=== PATIENT | female | born 1945 | race Caucasian/White ===

== ENCOUNTER 2018-05-02 00:13 | Emergency (ER) | payer MEDICARE, OTHER ==
[~2018-05-02] VITALS: Ht 142.2 cm; Wt 56.7 kg
[~2018-05-02 00:13] MED LIST: AMARYL; CLIN300 PO; CODACE30 PO; COREG; DIOVAN; GLUCOPHAGE; HYDACE5 PO; HYDRALAZINE; PENVK500 PO; PROBENECID; Percocet 5-3251 EACH PO; THYROXINE
[2018-05-02] MEDS ORDERED: Metformin HCl500 MG PO (00:33)
[2018-05-02] MEDS ORDERED: GLIP5ER PO (00:33)
[2018-05-02] MEDS ORDERED: LEVSOD137 PO (00:33)
[2018-05-02] MEDS ORDERED: AMLO5 PO (00:34)
== END 2018-05-02 03:15 | disposition left against medical advice (07) ==
LOC: ER 00:13
DX: Z53.21 Procedure and treatment not carried out due to patient leaving prior to being seen by health care provider (principal)

== ENCOUNTER → 2020-03-26 | Outpatient (CLI) | payer MEDICARE, OTHER ==
[~2020-03-26] MED LIST changes: +AMLO5 PO; +GLIP5ER PO; +LEVSOD137 PO; +Metformin HCl500 MG PO
[2020-03-26 14:23] LABS: Source, Urine Voided
[2020-03-26 14:36] LABS: BASOPHILS ABSOLUTE AUTO 0.04 K/mm3 (0.00-0.23); BASOPHILS PERCENT AUTO 1 % (0-2); EOSINOPHILS ABSOLUTE AUTO 0.11 K/mm3 (0.00-0.68); EOSINOPHILS PERCENT AUTO 2 % (0-6); Hemoglobin 11.6 g/dL (11.5-16.0); IMMATURE GRAN ABSOLUTE AUTO 0.01 K/mm3 (0.00-0.10); IMMATURE GRAN PERCENT AUTO 0 % (0-1); LYMPHOCYTES ABSOLUTE AUTO 2.29 K/mm3 (0.84-5.20); LYMPHOCYTES PERCENT AUTO 33 % (21-46); MONOCYTES ABSOLUTE AUTO 0.69 K/mm3 (0.16-1.47); MONOCYTES PERCENT AUTO 10 % (4-13); Mean Corpuscular HGB 29.1 pg (26.0-34.0); Mean Corpuscular HGB Conc 33.1 g/dL (31.5-36.5); Mean Corpuscular Volume 88 fL (80-100); Mean Platelet Volume 9.7 fL (9.1-12.4); NEUTROPHILS PERCENT AUTO 55 % (41-73); Platelet Count 222 K/mm3 (150-400); RDW Coefficient Variation 12.7 % (11.7-14.2); RDW Standard Deviation 40.7 fL (35.1-46.3); Red Blood Cell Count 3.99 M/mm3 (3.80-5.20); White Blood Cell Count 6.94 K/mm3 (4.00-11.30)
[2020-03-26 14:49] LABS: Albumin, Blood 3.9 g/dL (3.4-5.0); Anion Gap 13 mmol/L (6-16); Blood Urea Nitrogen 34 mg/dL (8-24); CO2, Blood 25 mmol/L (21-32); Calcium, Blood 9.1 mg/dL (8.5-10.1); Chloride, Blood 108 mmol/L (98-108); Creatinine, Blood 1.36 mg/dL (0.40-1.00); Glomerular Filtration Rate 38 (60-); Glucose, Blood 112 mg/dL (70-99); Phosphorus, Blood 4.8 mg/dL (2.5-4.9); Potassium, Blood 4.5 mmol/L (3.5-5.5); Sodium, Blood 146 mmol/L (136-145)
[2020-03-26 14:53] LABS: Appearance, Urine Cloudy (Clear); Bilirubin, Urine Neg (Neg); Blood, Urine Neg (Neg); Color, Urine Yellow (P-Yellow); Glucose Qualitative, Urine Neg (Normal); Ketones, Urine Neg (Neg); Leukocyte Esterase, Urine 2+ (Neg); Nitrite, Urine Pos (Neg); Protein, Urine 2+ (Neg); Specific Gravity, Urine 1.015 (1.003-1.022); Urobilinogen, Urine NORM (Normal)
[2020-03-26 14:54] LABS: Bacteria Many /hpf; Red Blood Cells, Urine 0-2 /hpf (0-2); Squamous Epithelial Cells Few /hpf (Few); Transitional Epithelial Cells Few /hpf (0-Rare)
[2020-03-26 17:10] LABS: Creatinine, Urine Random 71.6 mg/dL (27.00-270.00); Protein, Urine Random 147.6 mg/dL (0.0-11.9)
[2020-03-28 01:09] LABS: HBSAG SCREEN Negative (Negative); HEP B CORE AB, TOT Negative (Negative); HEP C VIRUS AB <0.1 (0.0-0.9)
== END | disposition home or self-care (01) ==
LOC: LAB EV 14:10 → LAB SHORT 14:10
PROVIDERS: Internal Medicine
DX: Z11.59 Encounter for screening for other viral diseases (principal); N18.3 Chronic kidney disease, stage 3 (moderate)
CPT/HCPCS: 36415; 80069; 81001; 82570; 84156; 85025; 86317; 86704; 86708; 86803; 87340

== ENCOUNTER → 2020-06-07 | Outpatient (CLI) | payer MEDICARE, OTHER | END | disposition home or self-care (01) | LOC: LAB SHORT 08:27 → PLD 08:27 | DX: B88.0 Other acariasis (principal) | CPT/HCPCS: 88305; 88312 ==

== ENCOUNTER 2020-07-26 20:44 | Emergency (ER) | payer MEDICARE, OTHER ==
[~2020-07-26] VITALS: Ht 142.2 cm; Wt 52.2 kg
[2020-07-26 21:40] LABS: BASOPHILS ABSOLUTE AUTO 0.05 K/mm3 (0.00-0.23); BASOPHILS PERCENT AUTO 1 % (0-2); EOSINOPHILS ABSOLUTE AUTO 0.04 K/mm3 (0.00-0.68); EOSINOPHILS PERCENT AUTO 1 % (0-6); Hematocrit 34.1 % (33.0-51.0); IMMATURE GRAN ABSOLUTE AUTO 0.02 K/mm3 (0.00-0.10); IMMATURE GRAN PERCENT AUTO 0 % (0-1); LYMPHOCYTES ABSOLUTE AUTO 0.98 K/mm3 (0.84-5.20); LYMPHOCYTES PERCENT AUTO 11 % (21-46); MONOCYTES ABSOLUTE AUTO 0.79 K/mm3 (0.16-1.47); MONOCYTES PERCENT AUTO 9 % (4-13); Mean Corpuscular HGB 29.3 pg (26.0-34.0); Mean Corpuscular HGB Conc 32.3 g/dL (31.5-36.5); Mean Corpuscular Volume 91 fL (80-100); Mean Platelet Volume 10.3 fL (9.1-12.4); NEUTROPHILS ABSOLUTE AUTO 6.73 K/mm3 (1.96-9.15); NEUTROPHILS PERCENT AUTO 78 % (41-73); Platelet Count 191 K/mm3 (150-400); RDW Coefficient Variation 12.9 % (11.7-14.2); RDW Standard Deviation 42.5 fL (35.1-46.3); Red Blood Cell Count 3.76 M/mm3 (3.80-5.20); White Blood Cell Count 8.61 K/mm3 (4.00-11.30)
[2020-07-26 22:00] LABS: Alanine Aminotransfer (ALT/SGP 19 U/L (12-78); Albumin, Blood 3.7 g/dL (3.4-5.0); Alk Phos 100 U/L (50-136); Anion Gap 6 mmol/L (6-16); Aspartate Aminotrans (AST/SGOT 20 U/L (12-37); Bilirubin, Total 0.6 mg/dL (0.1-1.0); Blood Urea Nitrogen 33 mg/dL (8-24); Bun/Creatinine Ratio 25.6 (12.0-20.0); CO2, Blood 25 mmol/L (21-32); CPK Creatine Kinase 461 U/L (26-193); Calcium, Blood 8.8 mg/dL (8.5-10.1); Chloride, Blood 110 mmol/L (98-108); Creatinine, Blood 1.29 mg/dL (0.40-1.00); Globulin, Blood 3.7 g/dL (2.2-4.0); Glomerular Filtration Rate 43 (60-); Glucose, Blood 203 mg/dL (70-99); Potassium, Blood 4.1 mmol/L (3.5-5.5); Sodium, Blood 141 mmol/L (136-145); Total Protein, Blood 7.4 g/dL (6.4-8.2); Troponin I <0.015 ng/mL (0.000-0.040)
[2020-07-26 22:13] LABS: Creatine Kinase MB Index 1.3 (0.0-4.0)
[2020-07-26 23:03] LABS: Source, Urine Clean Catch
[2020-07-26 23:07] LABS: Appearance, Urine Cloudy (Clear); Bilirubin, Urine Neg (Neg); Blood, Urine 3+ (Neg); Color, Urine Yellow (P-Yellow); Glucose Qualitative, Urine Neg (Neg); Ketones, Urine 1+ (Neg); Leukocyte Esterase, Urine 3+ (Neg); Nitrite, Urine Neg (Neg); Protein, Urine 4+ (Neg); Urobilinogen, Urine NORM (Normal)
[2020-07-26 23:17] LABS: Bacteria Many /hpf; Squamous Epithelial Cells Few /hpf (Few); White Blood Cells, Urine TNTC /hpf (0-5)
[2020-07-26] MEDS ORDERED: CEFP200 PO (23:24)
== END 2020-07-27 00:15 | disposition home or self-care (01) ==
LOC: ER 20:44
PROVIDERS: Emergency Medicine
DX: N39.0 Urinary tract infection, site not specified (principal); E11.9 Type 2 diabetes mellitus without complications; I10 Essential (primary) hypertension; Z88.0 Allergy status to penicillin; Z79.84 Long term (current) use of oral hypoglycemic drugs; Z79.899 Other long term (current) drug therapy
CPT/HCPCS: 36415; 80053; 81001; 82550; 82553; 84484; 85025; 87077; 87086; 87186; 93005; 93010; 99284-25; A9270-GY; J7030

== ENCOUNTER 2020-08-18 04:46 | Emergency (ER) | payer MEDICARE, OTHER ==
[~2020-08-18] VITALS: Ht 142.2 cm; Wt 51.7 kg
[~2020-08-18 04:46] MED LIST changes: +CEFP200 PO; +METF500C PO; -Metformin HCl500 MG PO
[2020-08-18] MEDS ORDERED: HYDR1TAB94 PO (06:39)
== END 2020-08-18 07:07 | disposition home or self-care (01) ==
LOC: ER 04:46
DX: M54.31 Sciatica, right side (principal); E11.9 Type 2 diabetes mellitus without complications; I10 Essential (primary) hypertension; Z88.0 Allergy status to penicillin; Z79.84 Long term (current) use of oral hypoglycemic drugs; Z79.899 Other long term (current) drug therapy
CPT/HCPCS: 99283; A9270-GY

== ENCOUNTER 2020-08-18 13:15 | Inpatient (IN) | payer MEDICARE, OTHER ==
[~2020-08-18] VITALS: Ht 142.2 cm; Wt 51.7 kg
[~2020-08-18 13:15] MED LIST changes: +HYDR1TAB94 PO
[2020-08-18 15:06] LABS: BASOPHILS ABSOLUTE AUTO 0.05 K/mm3 (0.00-0.23); BASOPHILS PERCENT AUTO 1 % (0-2); EOSINOPHILS ABSOLUTE AUTO 0.04 K/mm3 (0.00-0.68); EOSINOPHILS PERCENT AUTO 0 % (0-6); Hematocrit 31.9 % (33.0-51.0); Hemoglobin 10.6 g/dL (11.5-16.0); IMMATURE GRAN ABSOLUTE AUTO 0.05 K/mm3 (0.00-0.10); IMMATURE GRAN PERCENT AUTO 1 % (0-1); LYMPHOCYTES ABSOLUTE AUTO 1.29 K/mm3 (0.84-5.20); LYMPHOCYTES PERCENT AUTO 14 % (21-46); MONOCYTES ABSOLUTE AUTO 0.68 K/mm3 (0.16-1.47); MONOCYTES PERCENT AUTO 7 % (4-13); Mean Corpuscular HGB 29.5 pg (26.0-34.0); Mean Corpuscular HGB Conc 33.2 g/dL (31.5-36.5); Mean Corpuscular Volume 89 fL (80-100); Mean Platelet Volume 10.5 fL (9.1-12.4); NEUTROPHILS ABSOLUTE AUTO 7.45 K/mm3 (1.96-9.15); NEUTROPHILS PERCENT AUTO 78 % (41-73); Platelet Count 206 K/mm3 (150-400); RDW Standard Deviation 39.3 fL (35.1-46.3); Red Blood Cell Count 3.59 M/mm3 (3.80-5.20); White Blood Cell Count 9.56 K/mm3 (4.00-11.30)
[2020-08-18 15:27] LABS: Albumin, Blood 3.5 g/dL (3.4-5.0); Albumin/Globulin Ratio 0.9 (0.8-1.8); Bilirubin, Total 0.3 mg/dL (0.1-1.0); Bun/Creatinine Ratio 21.5 (12.0-20.0); Calcium, Blood 8.8 mg/dL (8.5-10.1); Creatinine, Blood 1.44 mg/dL (0.40-1.00); Globulin, Blood 3.7 g/dL (2.2-4.0); Total Protein, Blood 7.2 g/dL (6.4-8.2)
[2020-08-18 16:26] LABS: International Normalized Ratio 1.02; Prothrombin Time Results 10.9 Sec (9.7-11.5)
--- NOTE | 2020-08-18 18:38 | NUR ---
SHIFT SUMMARY PT A&OX4, R HIP FX, DENIES N&T IN BLE'S. PAIN MANAGED WITH 0.2 DILAUDID AND 5 MG NORCO. LINDA PO, DENIES N&V. VOIDING IN BEDPAIN; PAINFUL REPOSITIONING. PLAN - NPO AT MIDNIGHT FOR SURGERY TOMORROW. WILL REPORT TO ONCOMING NOC RN.
[2020-08-18 23:34] LABS: Source, Urine Catheter
[2020-08-18 23:49] LABS: Bilirubin, Urine Neg (Neg); Blood, Urine 3+ (Neg); Glucose Qualitative, Urine 2+ (Neg); Ketones, Urine Neg (Neg); Leukocyte Esterase, Urine 1+ (Neg); Nitrite, Urine Neg (Neg); Protein, Urine 3+ (Neg); Urobilinogen, Urine NORM (Normal)
[2020-08-18 23:55] LABS: Appearance, Urine Hazy (Clear); Color, Urine Yellow (P-Yellow)
[2020-08-18 23:56] LABS: Bacteria Many /hpf; Red Blood Cells, Urine 0-2 /hpf (0-2); Squamous Epithelial Cells Rare /hpf (Few); White Blood Cells, Urine 25-50 /hpf (0-5)
[2020-08-19 04:06] LABS: BASOPHILS ABSOLUTE AUTO 0.04 K/mm3 (0.00-0.23); BASOPHILS PERCENT AUTO 1 % (0-2); EOSINOPHILS ABSOLUTE AUTO 0.03 K/mm3 (0.00-0.68); EOSINOPHILS PERCENT AUTO 0 % (0-6); Hematocrit 32.9 % (33.0-51.0); Hemoglobin 10.4 g/dL (11.5-16.0); IMMATURE GRAN ABSOLUTE AUTO 0.01 K/mm3 (0.00-0.10); IMMATURE GRAN PERCENT AUTO 0 % (0-1); LYMPHOCYTES ABSOLUTE AUTO 1.58 K/mm3 (0.84-5.20); LYMPHOCYTES PERCENT AUTO 20 % (21-46); MONOCYTES ABSOLUTE AUTO 0.89 K/mm3 (0.16-1.47); MONOCYTES PERCENT AUTO 11 % (4-13); Mean Corpuscular HGB 29.1 pg (26.0-34.0); Mean Corpuscular HGB Conc 31.6 g/dL (31.5-36.5); Mean Corpuscular Volume 92 fL (80-100); Mean Platelet Volume 10.5 fL (9.1-12.4); NEUTROPHILS ABSOLUTE AUTO 5.43 K/mm3 (1.96-9.15); NEUTROPHILS PERCENT AUTO 68 % (41-73); Platelet Count 181 K/mm3 (150-400); RDW Coefficient Variation 11.9 % (11.7-14.2); RDW Standard Deviation 40.6 fL (35.1-46.3); Red Blood Cell Count 3.58 M/mm3 (3.80-5.20); White Blood Cell Count 7.98 K/mm3 (4.00-11.30)
[2020-08-19 04:21] LABS: Prothrombin Time Results 10.7 Sec (9.7-11.5)
[2020-08-19 04:39] LABS: Albumin, Blood 3.3 g/dL (3.4-5.0); Albumin/Globulin Ratio 0.9 (0.8-1.8); Bilirubin, Total 0.4 mg/dL (0.1-1.0); Bun/Creatinine Ratio 20.1 (12.0-20.0); Calcium, Blood 9.1 mg/dL (8.5-10.1); Creatinine, Blood 1.34 mg/dL (0.40-1.00); Globulin, Blood 3.7 g/dL (2.2-4.0)
--- NOTE | 2020-08-19 04:59 | NUR ---
SHIFT SUMMARY PT A/O X3; FORGETFUL/CONFUSED AT TIMES. PT HAS C/O PAIN IN R HIP AND HAS BEEN MED WITH 0.4MG DILAUDED PRN PER ORDERS. THIS HAS BEEN WORKING WELL FOR PAIN. MARCANO PLACED THIS SHIFT. PLAN IS FOR PT TO HAVE SURGERY ON R HIP TODAY. HAS BEEN NPO SINCE MIDNIGHT FOR SURGERY. PT RESTING AT THIS TIME WTIH CALL LIGHT IN REACH.
--- NOTE | 2020-08-19 13:41 | NUR ---
PT RETURNED FROM PACU S/P L KEV HIP, AQUACEL CDI, WIGGLES TOES, MOVES FEET. DENIES PAIN, DENIES N&V, LINDA PO CLEAR LIQUID, VSS.
--- NOTE | 2020-08-19 15:45 | NUR ---
SHIFT SUMMARY PT A&OX1-2, S/P R KEV HIP, AQUACEL CDI, WBAT. AMBULATED W/FWW & GB TO CHAIR, WITH PHYSICAL THERAPY FOR EVALUATION. DENIES PAIN AT THIS TIME. DENIES N&V, LINDA PO CLEAR LIQUID DIET; ADA ORDERED FOR DINNER. MARCANO PATENT & DRAINING YELLOW URINE, STAT LOCK ON, OFF FLOOR. WILL REPORT TO ONCOMING LEATHA SANON.
--- NOTE | 2020-08-20 06:01 | NUR ---
SHIFT SUMMARY PT A/O X3; FORGETFUL/CONFUSED AT TIMES. PT WAS AGITATED AT START OF SHIFT AND WAS MEDICATED FOR PAIN, WHICH ONLY SLIGHTLY HELPED. ORDER OBTAINED FOR ATIVAN; 0.5MG ATIVAN GIVEN, AFTER WHICH PT WAS ABLE TO GET SOME REST. PT TOLERATING PO INTAKE. MARCANO IN PLACE, STAT LOCK ON. AQUACEL TO R HIP CDI. VSS OVERNIGHT. PT RESTING AT THIS TIME WITH CALL LIGHT IN REACH.
[2020-08-20 06:03] LABS: BASOPHILS ABSOLUTE AUTO 0.02 K/mm3 (0.00-0.23); BASOPHILS PERCENT AUTO 0 % (0-2); EOSINOPHILS PERCENT AUTO 0 % (0-6); Hematocrit 27.2 % (33.0-51.0); Hemoglobin 8.7 g/dL (11.5-16.0); IMMATURE GRAN ABSOLUTE AUTO 0.05 K/mm3 (0.00-0.10); IMMATURE GRAN PERCENT AUTO 1 % (0-1); LYMPHOCYTES ABSOLUTE AUTO 0.86 K/mm3 (0.84-5.20); LYMPHOCYTES PERCENT AUTO 8 % (21-46); MONOCYTES ABSOLUTE AUTO 1.09 K/mm3 (0.16-1.47); MONOCYTES PERCENT AUTO 10 % (4-13); Mean Corpuscular Volume 91 fL (80-100); Mean Platelet Volume 10.7 fL (9.1-12.4); NEUTROPHILS ABSOLUTE AUTO 8.96 K/mm3 (1.96-9.15); NEUTROPHILS PERCENT AUTO 82 % (41-73); Platelet Count 162 K/mm3 (150-400); RDW Standard Deviation 39.9 fL (35.1-46.3); White Blood Cell Count 10.98 K/mm3 (4.00-11.30)
--- NOTE | 2020-08-20 15:22 | NUR ---
08/20/20 1522 Jennifer Candelario VERIFICATIONS: EDIT CHART.
--- NOTE | 2020-08-20 15:42 | NUR ---
MARCANO CATHETER WAS REMOVED AT 1520. PT TOLERATED WELL. 200ML OUT IN MARCANO CATHETER. PT WAS ENCOURAGED TO DRINK FLUIDS. PT PROVIDED WITH DIET PEPSI TO ENCOURAGE FLUID INTAKE. WILL CONTINUE TO MONITOR.
--- NOTE | 2020-08-20 19:39 | NUR ---
DECREASED URINE OUTPUT CALL PLACED TO DR. BOX AND MESSAGE LEFT FOR CALL BACK REGARDING DECREASED URINE OUTPUT. PT HAS BEEN ENCOURAGED TO DRINK FLUIDS. FRESH WATER PROVIDED AND DIET PEPSI TO ENCOURAGE INTAKE. NOC RN NOTIFIED OF DECREASED OUTPUT AND AWAITING RETURN CALL.
--- NOTE | 2020-08-20 19:42 | NUR ---
SHIFT SUMMARY PT IS POD#1 FROM R KEV HIP. PAIN HAS BEEN MANAGED WITH PO PAIN MEDICATION. PT HAS BEEN ANXIOUS AND CONFUSED T/O THE DAY. PT IS ALERT AND ORIENTED X2-3, AND IS FORGETFUL. PT HAS DIFFICULTY FOLLOWING DIRECTIONS WHEN SHE IS ANXIOUS. PT WORKED WITH THERAPY TODAY AND IS A 2 PERSON ASSIST FOR TRANSFERS. PT HAS HAD DECREASED URINE OUTPUT AND FLUIDS HAVE BEEN ENCOURAGED, SEE NOTE. VSS. REPORT GIVEN TO LEATHA SANON.
--- NOTE | 2020-08-21 03:27 | NUR ---
SHIFT SUMMARY: POD 2 RIGHT KEV HIP PT IS A&OX2 SINCE SHE BECOMES CONFUSED/FORGETFUL AND MORE SO WHEN SHE BECOMES ANXIOUS. SHE WAS ANXIOUS AT THE BEGINNING OF SHIFT BUT HAS SINCE BEEN SLEEPING IN HER CHAIR. SHE REPORTS THAT IT IS THE "MOST COMFORTABLE" TO SLEEP IN. SHE HAS VOIDED AND TOLERATING PO INTAKE. SHE IS A 2 PERSON MAX ASSIST TO THE BEDSIDE COMMODE. AQUALCEL IS C/D/I ON THE RIGHT HIP. VITAL SIGNS ARE WNL AND IS ON RA. CALL LIGHT IS WITHIN REACH AND CHAIR ALARM IS ON. THE PLAN IS TO BE D/C TO A SNF TODAY.
[2020-08-21 05:54] LABS: BASOPHILS ABSOLUTE AUTO 0.07 K/mm3 (0.00-0.23); BASOPHILS PERCENT AUTO 1 % (0-2); EOSINOPHILS ABSOLUTE AUTO 0.08 K/mm3 (0.00-0.68); EOSINOPHILS PERCENT AUTO 1 % (0-6); Hemoglobin 8.6 g/dL (11.5-16.0); IMMATURE GRAN ABSOLUTE AUTO 0.06 K/mm3 (0.00-0.10); IMMATURE GRAN PERCENT AUTO 1 % (0-1); LYMPHOCYTES PERCENT AUTO 15 % (21-46); MONOCYTES ABSOLUTE AUTO 1.27 K/mm3 (0.16-1.47); MONOCYTES PERCENT AUTO 12 % (4-13); Mean Corpuscular HGB 29.2 pg (26.0-34.0); Mean Corpuscular HGB Conc 31.9 g/dL (31.5-36.5); Mean Corpuscular Volume 92 fL (80-100); Mean Platelet Volume 11.2 fL (9.1-12.4); NEUTROPHILS ABSOLUTE AUTO 7.83 K/mm3 (1.96-9.15); NEUTROPHILS PERCENT AUTO 72 % (41-73); Platelet Count 177 K/mm3 (150-400); RDW Coefficient Variation 12.2 % (11.7-14.2); RDW Standard Deviation 40.7 fL (35.1-46.3); Red Blood Cell Count 2.95 M/mm3 (3.80-5.20); White Blood Cell Count 10.91 K/mm3 (4.00-11.30)
[2020-08-21] MEDS ORDERED: LEXAPRO5 MG PO (10:41)
[2020-08-21] MEDS ORDERED: HYDRA50 PO (10:42)
[2020-08-21] MEDS ORDERED: EUTHYROX50 MCG PO (10:44)
[2020-08-21] MEDS ORDERED: LISI5 PO (10:45)
[2020-08-21] MEDS ORDERED: LOSA50 PO (10:46)
[2020-08-21] MEDS ORDERED: PROB500 PO (10:48)
[2020-08-21] MEDS ORDERED: TRAM50 PO (10:49)
--- NOTE | 2020-08-21 15:45 | NUR ---
DISCHARGE REPORT CALLED TO ZHANE AT [facility]. PT'S FRIEND WHO IS INVOLVED WITH HER HOME CARE WAS NOTIFIED OF TRANSFER TO BY MANDIE FROM CARE MANAGEMENT. DRESSINGS, SCRIPTS, ORDERS AND PT'S HOME METFROMIN SENT WITH PT TO REHAB. PT MEDICATED AND ASSISTED TO THE BATHROOM PRIOR TO TRANSPORT.
== END 2020-08-21 15:11 | DRG 522 ==
LOC: ER 13:15 → SURS 16:19
PROVIDERS: Emergency Medicine; Orthopaedic Surgery; ADMIT Family Medicine
PROC: 0SRR0JA Replacement of Right Hip Joint, Femoral Surface with Synthetic Substitute, Uncemented, Open Approach (ICD-10-PCS; principal; 2020-08-19 10:00)
DX: S72.001A Fracture of unspecified part of neck of right femur, initial encounter for closed fracture (principal); D62 Acute posthemorrhagic anemia; W19.XXXA Unspecified fall, initial encounter; I12.9 Hypertensive chronic kidney disease with stage 1 through stage 4 chronic kidney disease, or unspecified chronic kidney disease; N18.30 Chronic kidney disease, stage 3 unspecified; F41.9 Anxiety disorder, unspecified; E11.22 Type 2 diabetes mellitus with diabetic chronic kidney disease; M10.9 Gout, unspecified; E78.1 Pure hyperglyceridemia; E03.9 Hypothyroidism, unspecified; Z20.828 Contact with and (suspected) exposure to other viral communicable diseases; Z79.84 Long term (current) use of oral hypoglycemic drugs
CPT/HCPCS: 36415; 71045; 72170; 73501; 73502; 80053; 81001; 82947; 85025; 85610; 85730; 88305; 88311; 93005; 93010; 96374; 96375; 97110; 97116; 97162; 97166; 97530; 97535; 99285-25; A9270; A9270-GY; C1776; J0171; J0735; J1100; J1170; J1650; J1815; J1885; J2060; J2270; J2370; J2405; J2704; J2795; J3010; J7030; J7120; U0004

== ENCOUNTER → 2021-01-30 | Outpatient (CLI) | payer MEDICARE, OTHER ==
[~2021-01-30] MED LIST changes: +EUTHYROX50 MCG PO; +HYDRA50 PO; +LEXAPRO5 MG PO; +LISI5 PO; +LOSA50 PO; +PROB500 PO; +TRAM50 PO
[2021-01-30 06:08] LABS: BASOPHILS ABSOLUTE AUTO 0.04 K/mm3 (0.00-0.23); BASOPHILS PERCENT AUTO 1 % (0-2); EOSINOPHILS ABSOLUTE AUTO 0.13 K/mm3 (0.00-0.68); EOSINOPHILS PERCENT AUTO 2 % (0-6); Hematocrit 30.6 % (33.0-51.0); Hemoglobin 9.6 g/dL (11.5-16.0); IMMATURE GRAN ABSOLUTE AUTO 0.02 K/mm3 (0.00-0.10); IMMATURE GRAN PERCENT AUTO 0 % (0-1); LYMPHOCYTES PERCENT AUTO 28 % (21-46); MONOCYTES ABSOLUTE AUTO 0.74 K/mm3 (0.16-1.47); MONOCYTES PERCENT AUTO 14 % (4-13); Mean Corpuscular HGB 24.9 pg (26.0-34.0); Mean Corpuscular HGB Conc 31.4 g/dL (31.5-36.5); Mean Corpuscular Volume 80 fL (80-100); Mean Platelet Volume 9.9 fL (9.1-12.4); NEUTROPHILS ABSOLUTE AUTO 2.98 K/mm3 (1.96-9.15); NEUTROPHILS PERCENT AUTO 55 % (41-73); Platelet Count 227 K/mm3 (150-400); RDW Coefficient Variation 16.6 % (11.7-14.2); RDW Standard Deviation 48.6 fL (35.1-46.3); Red Blood Cell Count 3.85 M/mm3 (3.80-5.20); White Blood Cell Count 5.41 K/mm3 (4.00-11.30)
[2021-01-30 06:34] LABS: Albumin, Blood 3.1 g/dL (3.4-5.0); Anion Gap 5 mmol/L (6-16); Blood Urea Nitrogen 28 mg/dL (8-24); Bun/Creatinine Ratio 22.8 (12.0-20.0); CO2, Blood 27 mmol/L (21-32); Calcium, Blood 8.3 mg/dL (8.5-10.1); Chloride, Blood 108 mmol/L (98-108); Creatinine, Blood 1.23 mg/dL (0.40-1.00); Glomerular Filtration Rate 45 (60-); Glucose, Blood 53 mg/dL (70-99); Phosphorus, Blood 3.8 mg/dL (2.5-4.9); Potassium, Blood 4.3 mmol/L (3.5-5.5); Sodium, Blood 140 mmol/L (136-145)
== END | disposition home or self-care (01) ==
LOC: LAB UVN 05:56 → EDSTATUS 07:50
PROVIDERS: Physician Assistant
DX: E03.9 Hypothyroidism, unspecified (principal); E11.22 Type 2 diabetes mellitus with diabetic chronic kidney disease; N18.9 Chronic kidney disease, unspecified; D63.1 Anemia in chronic kidney disease
CPT/HCPCS: 80069; 83036; 84443; 85025

== ENCOUNTER → 2021-03-19 | Outpatient (CLI) | payer MEDICARE, OTHER ==
[2021-03-20 11:54] LABS: Percent Saturation 13.5 % (15.0-50.0)
== END | disposition home or self-care (01) ==
LOC: LAB UVN 06:11 → EDSTATUS 11:00
PROVIDERS: Physician Assistant
DX: E03.9 Hypothyroidism, unspecified (principal); D64.9 Anemia, unspecified
CPT/HCPCS: 82728; 83540; 83550; 84443

== ENCOUNTER → 2021-09-17 | Outpatient (CLI) | payer MEDICARE, OTHER ==
[2021-09-17 06:10] LABS: BASOPHILS ABSOLUTE AUTO 0.06 K/mm3 (0.00-0.23); BASOPHILS PERCENT AUTO 1 % (0-2); EOSINOPHILS PERCENT AUTO 2 % (0-6); Hematocrit 33.1 % (33.0-51.0); Hemoglobin 10.4 g/dL (11.5-16.0); IMMATURE GRAN ABSOLUTE AUTO 0.05 K/mm3 (0.00-0.10); IMMATURE GRAN PERCENT AUTO 1 % (0-1); LYMPHOCYTES ABSOLUTE AUTO 1.87 K/mm3 (0.84-5.20); LYMPHOCYTES PERCENT AUTO 21 % (21-46); MONOCYTES ABSOLUTE AUTO 0.83 K/mm3 (0.16-1.47); MONOCYTES PERCENT AUTO 10 % (4-13); Mean Corpuscular HGB 25.9 pg (26.0-34.0); Mean Corpuscular HGB Conc 31.4 g/dL (31.5-36.5); Mean Corpuscular Volume 82 fL (80-100); Mean Platelet Volume 10.1 fL (9.1-12.4); NEUTROPHILS ABSOLUTE AUTO 5.75 K/mm3 (1.96-9.15); NEUTROPHILS PERCENT AUTO 66 % (41-73); Platelet Count 234 K/mm3 (150-400); RDW Coefficient Variation 15.1 % (11.7-14.2); RDW Standard Deviation 45.1 fL (35.1-46.3); Red Blood Cell Count 4.02 M/mm3 (3.80-5.20); White Blood Cell Count 8.76 K/mm3 (4.00-11.30)
[2021-09-17 06:34] LABS: Albumin, Blood 2.9 g/dL (3.4-5.0); Anion Gap 8 mmol/L (6-16); Blood Urea Nitrogen 38 mg/dL (8-24); Bun/Creatinine Ratio 22.2 (12.0-20.0); CO2, Blood 24 mmol/L (21-32); Calcium, Blood 8.9 mg/dL (8.5-10.1); Chloride, Blood 112 mmol/L (98-108); Creatinine, Blood 1.71 mg/dL (0.40-1.00); Glomerular Filtration Rate 29 (60-); Glucose, Blood 67 mg/dL (70-99); Potassium, Blood 4.6 mmol/L (3.5-5.5); Sodium, Blood 144 mmol/L (136-145)
[2021-09-20 16:07] LABS: ALBUMIN 3.1 g/dL (2.9-4.4); ALPHA-1-GLOBULIN 0.2 g/dL (0.0-0.4); ALPHA-2-GLOBULIN 0.9 g/dL (0.4-1.0); BETA GLOBULIN 1.2 g/dL (0.7-1.3); GAMMA GLOBULIN 0.9 g/dL (0.4-1.8); GLOBULIN, TOTAL 3.2 g/dL (2.2-3.9); IMMUNOGLOBULIN A, QN, SERUM 341 mg/dL (64-422); IMMUNOGLOBULIN G, QN, SERUM 733 mg/dL (586-1602); IMMUNOGLOBULIN M, QN, SERUM 64 mg/dL (26-217); M-SPIKE Not Observed g/dL (Not Observed); PROTEIN, TOTAL, SERUM 6.3 g/dL (6.0-8.5)
== END | disposition home or self-care (01) ==
LOC: LAB UVN 05:59 → EDSTATUS 09:47
PROVIDERS: Physician Assistant
DX: E11.22 Type 2 diabetes mellitus with diabetic chronic kidney disease (principal); N18.30 Chronic kidney disease, stage 3 unspecified; D50.8 Other iron deficiency anemias
CPT/HCPCS: 80069; 82784; 84165; 85025; 86334

== ENCOUNTER → 2022-02-18 | Outpatient (CLI) | payer MEDICARE, OTHER ==
[2022-02-18 06:52] LABS: Hematocrit 29.1 % (33.0-51.0); Hemoglobin 9.1 g/dL (11.5-16.0); Mean Corpuscular HGB 26.7 pg (26.0-34.0); Mean Corpuscular HGB Conc 31.3 g/dL (31.5-36.5); Mean Corpuscular Volume 85 fL (80-100); Mean Platelet Volume 10.1 fL (9.1-12.4); Platelet Count 267 K/mm3 (150-400); RDW Coefficient Variation 13.9 % (11.7-14.2); Red Blood Cell Count 3.41 M/mm3 (3.80-5.20); White Blood Cell Count 9.16 K/mm3 (4.00-11.30)
[2022-02-18 07:21] LABS: Albumin, Blood 2.9 g/dL (3.4-5.0); Albumin/Globulin Ratio 0.8 (0.8-1.8); Bilirubin, Total 0.3 mg/dL (0.1-1.0); Bun/Creatinine Ratio 16.9 (12.0-20.0); Calcium, Blood 8.6 mg/dL (8.5-10.1); Creatinine, Blood 2.01 mg/dL (0.40-1.00); Globulin, Blood 3.7 g/dL (2.2-4.0); Potassium, Blood 4.2 mmol/L (3.5-5.5); Thyroid Stimulating Hormone 1.21 uIU/mL (0.360-4.800); Total Protein, Blood 6.6 g/dL (6.4-8.2)
== END ==
LOC: LAB UVN 05:06 → EDSTATUS 12:23
PROVIDERS: Internal Medicine
DX: E03.9 Hypothyroidism, unspecified (principal); N18.30 Chronic kidney disease, stage 3 unspecified; D50.8 Other iron deficiency anemias; E78.5 Hyperlipidemia, unspecified; E11.51 Type 2 diabetes mellitus with diabetic peripheral angiopathy without gangrene; E11.22 Type 2 diabetes mellitus with diabetic chronic kidney disease
CPT/HCPCS: 80053; 83036; 84443; 85027

== ENCOUNTER → 2022-03-10 | Outpatient (CLI) | payer MEDICARE, OTHER ==
[2022-03-10 09:31] LABS: Hematocrit 27.5 % (33.0-51.0); Hemoglobin 8.6 g/dL (11.5-16.0)
[2022-03-10 09:54] LABS: Albumin, Blood 2.5 g/dL (3.4-5.0); Anion Gap 8 mmol/L (6-16); Blood Urea Nitrogen 30 mg/dL (8-24); Bun/Creatinine Ratio 16.2 (12.0-20.0); CO2, Blood 22 mmol/L (21-32); Chloride, Blood 111 mmol/L (98-108); Creatinine, Blood 1.85 mg/dL (0.40-1.00); Glomerular Filtration Rate 28 (60-); Glucose, Blood 81 mg/dL (70-99); Phosphorus, Blood 4.5 mg/dL (2.5-4.9); Potassium, Blood 4.8 mmol/L (3.5-5.5); Sodium, Blood 141 mmol/L (136-145)
== END | disposition home or self-care (01) ==
LOC: LAB UVN 08:30 → EDSTATUS 12:24
PROVIDERS: Internal Medicine
DX: E11.51 Type 2 diabetes mellitus with diabetic peripheral angiopathy without gangrene (principal); D50.0 Iron deficiency anemia secondary to blood loss (chronic); I10 Essential (primary) hypertension
CPT/HCPCS: 80069; 82306; 83970; 85014; 85018

== ENCOUNTER → 2022-09-10 | Outpatient (CLI) | payer MEDICARE, OTHER | END | disposition home or self-care (01) | LOC: LAB 10:18 → LAB SHORT 10:18 → LAB FUT 09-10 11:45 → EDSTATUS 09-10 11:45 | DX: L08.0 Pyoderma (principal) | CPT/HCPCS: 87070; 87205 ==

== ENCOUNTER → 2022-10-01 | Outpatient (CLI) | payer MEDICARE, OTHER ==
[2022-10-01 17:46] LABS: Bun/Creatinine Ratio 13.9 (12.0-20.0); Calcium, Blood 8.8 mg/dL (8.5-10.1); Creatinine, Blood 2.59 mg/dL (0.40-1.00); Potassium, Blood 4.6 mmol/L (3.5-5.5)
== END | disposition home or self-care (01) ==
LOC: EDSTATUS 09:54 → LAB UVN 16:05
PROVIDERS: Physician Assistant
DX: N18.30 Chronic kidney disease, stage 3 unspecified (principal)
CPT/HCPCS: 80048

== ENCOUNTER 2023-07-14 23:04 | Inpatient (IN) | payer MEDICARE, OTHER ==
[~2023-07-14] VITALS: Ht 152.4 cm; Wt 53.7 kg
[2023-07-14 23:18] LABS: BASOPHILS ABSOLUTE AUTO 0.06 K/mm3 (0.00-0.23); BASOPHILS PERCENT AUTO 1 % (0-2); EOSINOPHILS ABSOLUTE AUTO 0.32 K/mm3 (0.00-0.68); EOSINOPHILS PERCENT AUTO 4 % (0-6); Hematocrit 40.9 % (33.0-51.0); Hemoglobin 12.3 g/dL (11.5-16.0); IMMATURE GRAN ABSOLUTE AUTO 0.04 K/mm3 (0.00-0.10); IMMATURE GRAN PERCENT AUTO 0 % (0-1); LYMPHOCYTES ABSOLUTE AUTO 2.87 K/mm3 (0.84-5.20); LYMPHOCYTES PERCENT AUTO 31 % (21-46); MONOCYTES ABSOLUTE AUTO 0.91 K/mm3 (0.16-1.47); MONOCYTES PERCENT AUTO 10 % (4-13); Mean Corpuscular HGB 26.1 pg (26.0-34.0); Mean Corpuscular HGB Conc 30.1 g/dL (31.5-36.5); Mean Corpuscular Volume 87 fL (80-100); NEUTROPHILS ABSOLUTE AUTO 4.98 K/mm3 (1.96-9.15); NEUTROPHILS PERCENT AUTO 54 % (41-73); Platelet Count 345 K/mm3 (150-400); RDW Coefficient Variation 15.4 % (11.7-14.2); RDW Standard Deviation 48.1 fL (35.1-46.3); Red Blood Cell Count 4.71 M/mm3 (3.80-5.20); White Blood Cell Count 9.18 K/mm3 (4.00-11.30)
[2023-07-14 23:42] LABS: Albumin/Globulin Ratio 0.7 (0.8-1.8); Bilirubin, Total 0.3 mg/dL (0.1-1.0); Bun/Creatinine Ratio 18.5 (12.0-20.0); Calcium, Blood 8.5 mg/dL (8.5-10.1); Creatinine, Blood 2.6 mg/dL (0.40-1.00); Globulin, Blood 4.5 g/dL (2.2-4.0); Potassium, Blood 5.7 mmol/L (3.5-5.5); Total Protein, Blood 7.5 g/dL (6.4-8.2)
[2023-07-15] MEDS ORDERED: LOSARTAN POTAS100 M1 PO (04:28)
[2023-07-15] MEDS ORDERED: FERSU300 PO (04:29)
[2023-07-15 04:59] VITALS: BP 134/66
[2023-07-15 06:57] LABS: Bun/Creatinine Ratio 18.8 (12.0-20.0); Calcium, Blood 8.5 mg/dL (8.5-10.1); Creatinine, Blood 2.5 mg/dL (0.40-1.00); Potassium, Blood 6.4 mmol/L (3.5-5.5)
[2023-07-15 07:23] VITALS: BP 154/69
--- NOTE | 2023-07-15 07:28 | NUR ---
NOTIFIED BY LAB THAT PT HAD CRITICAL POTASSIUM 6.4. UNABLE TO REACH HOSPITALIST. PASSED ON TO DAY RN.
[2023-07-15 08:07] LABS: CHOL/HDL RATIO 3.3; Cholesterol 166 mg/dL (50-200); HDL Cholesterol 50 mg/dL (>39); Low Density Lipoprotein Chol 98 mg/dL (0-110); Triglycerides 88 mg/dL (30-160); Very Low Density Lipoprot Chol 17 mg/dL (6-32)
[2023-07-15 08:54] LABS: Glucose, Blood 450 mg/dL (70-99)
[2023-07-15 15:05] VITALS: BP 151/62
--- NOTE | 2023-07-15 19:27 | NUR ---
SHIFT SUMMARY PT A&OX2. PT ONLY ABLE TO SPEAK ONE OR TWO WORD PHRASES AT START OF SHIFT BUT HAS BEEN IMPROVING T/O SHIFT. PT TALKING IN FULL SENTANCES. RIGHT SIDED DEFECITS BUT ALSO IMPROVING T/O DAY. PT HAD CRITICAL POTASSIUM VALUE AT START OF SHIFT. ORDERS GIVEN AND POTASSIUM TRENDING IN RIGHT DIRECTION. BLOOD GLUCOSE ALSO CRITIALLY ELEVATED. ORDERS GIVEN AND LAST TWO BG WERE 170. PT DID HAVE ONE EPISODE OF VOMMITING IN THE MORNING. PT ATE VERY LITTLE OF MEALS TODAY. BED ALARM ON. BED IN LOWEST POSITION AND CALL LIGHT IN REACH.
[2023-07-15 19:44] VITALS: BP 168/74
[2023-07-16 02:55] VITALS: BP 164/69
[2023-07-16 04:40] VITALS: BP 142/61
--- NOTE | 2023-07-16 06:33 | NUR ---
SHIFT SUMMARY PATIENT SLEPT THROUGH THE NIGHT AND WOKE UP TO TAKE HER MEDICATIONS. PATIENT TURNED EVERY 2 HOURS. NO ACUTE EVENTS. BED IN LOW POSIITON, BED ALARM ON. CALL LIGHT IN REACH. WILL CONTINUE TO MONITOR.
[2023-07-16 07:19] LABS: Bun/Creatinine Ratio 15.8 (12.0-20.0); Calcium, Blood 8.4 mg/dL (8.5-10.1); Creatinine, Blood 2.85 mg/dL (0.40-1.00); Potassium, Blood 5.5 mmol/L (3.5-5.5); Thyroid Stimulating Hormone 1.37 uIU/mL (0.360-4.800)
[2023-07-16 07:30] VITALS: BP 170/67
[2023-07-16 08:11] LABS: HEMOGLOBIN A1C 10.1 % (4.8-5.6)
--- NOTE | 2023-07-16 09:00 | NUR ---
pt laying in bed awake a/ox2, pleasant and cooperative with care, follows commands well, denies pain, lungs are clear t/o, on r/a, no cough noted, hrr, no edema noted, ppp+1, cap refill <3 sec, vs stable, afebrile, iv site is cleaer and patent, btx4, abd flat soft nontender, incont of bowel/bladder, briefs in place, skin has ecchymotic areas, otherwise c/w/d, david merritt, call light in reach.
[2023-07-16 15:35] VITALS: BP 138/62
--- NOTE | 2023-07-16 17:03 | NUR ---
bladder scan was done, pt is incont, so attempted to catch her post void, scan showed 85mls in bladder at this time. call light in reach.
--- NOTE | 2023-07-16 18:24 | NUR ---
pt has been more clear today than was reported she was yesterday, speech advanced her diet, and med delivery, no further changes this shift. call light in reach.
[2023-07-16 20:20] VITALS: BP 152/60
[2023-07-17 04:20] VITALS: BP 172/67
[2023-07-17 05:37] LABS: Hematocrit 38.5 % (33.0-51.0); Hemoglobin 11.6 g/dL (11.5-16.0)
[2023-07-17 06:17] LABS: Albumin, Blood 2.7 g/dL (3.4-5.0); Anion Gap 7 mmol/L (6-16); Blood Urea Nitrogen 48 mg/dL (8-24); Bun/Creatinine Ratio 17.6 (12.0-20.0); CO2, Blood 21 mmol/L (21-32); Calcium, Blood 8.4 mg/dL (8.5-10.1); Chloride, Blood 112 mmol/L (98-108); Creatinine, Blood 2.73 mg/dL (0.40-1.00); Glomerular Filtration Rate 17 (60-); Glucose, Blood 180 mg/dL (70-99); Magnesium, Blood 1.8 mg/dL (1.6-2.4); Phosphorus, Blood 4.6 mg/dL (2.5-4.9); Potassium, Blood 4.6 mmol/L (3.5-5.5); Sodium, Blood 140 mmol/L (136-145)
[2023-07-17 07:14] VITALS: BP 181/71
--- NOTE | 2023-07-17 07:21 | NUR ---
SHIFT SUMMARY PATIENT WITH NO ACUTE EVENTS DURING SHIFT. BLADDER SCAN POST VOID OF 50ML. PATIENT ORIENTED TO SELF AND LOCATION, SPEACH MORE CLEAR THAN LAST NIGHT.
--- NOTE | 2023-07-17 09:00 | NUR ---
pt laying in bed awake a/ox2, mostly cooperative with care, is dramatic when touched or injection given, lungs are clear dim in bases, resp even and unlabord, no cough noted, on r/a, hrr, tele in place, running sr per monitor, see strip, no edema noted, ppp+1, cap refill <3 sec, vs stable, afebrile, iv site to rac site is clear and patent, s.l., btx4, abd flat soft nontender, incont bowel/bladder, briefs in place, skin c/w/d, a bit pink on coccyx, arms are a bit stiff, is speaking better than yesterday, and able to take po meds whole with water with out diff, david, call light in reach.
[2023-07-17 15:16] VITALS: BP 134/60
--- NOTE | 2023-07-17 18:03 | NUR ---
pt had an unevenful day, has been changed and turned throughout the day, no acute changes this shift. call light in reach.
[2023-07-17 19:42] VITALS: BP 144/57
--- NOTE | 2023-07-18 04:58 | NUR ---
END OF SHIFT SUMMARY PT A&O x2-3, VSS, AFEBRILE. PT's SPEECH CLEAR, [place]. PT Q2 TURNS, VERY FEARFUL OF FALLING, PT RESISTANT OF CARE. PAIN MANAGED WITH PRN TRAMADOL, WHICH WAS EFFECTIVE. PT SLEPT DIDN'T GET MUCH SLEEP. PT CRIED OUT AFTER RECEIVING INSULIN INJECTION AND HEPARIN. ACTIVE LISTENING AND THEARAPEUTIC COMMUNICATION USED TO HELP CALM PT DOWN. CALL LIGHT WITHIN REACH, [facility].
[2023-07-18 05:00] LABS: Hematocrit 39.3 % (33.0-51.0); Hemoglobin 12.1 g/dL (11.5-16.0)
[2023-07-18 05:44] LABS: Magnesium, Blood 1.6 mg/dL (1.6-2.4)
[2023-07-18 05:45] LABS: Albumin, Blood 2.8 g/dL (3.4-5.0); Anion Gap 8 mmol/L (6-16); Blood Urea Nitrogen 44 mg/dL (8-24); Bun/Creatinine Ratio 17.7 (12.0-20.0); CO2, Blood 20 mmol/L (21-32); Calcium, Blood 8.2 mg/dL (8.5-10.1); Chloride, Blood 111 mmol/L (98-108); Creatinine, Blood 2.49 mg/dL (0.40-1.00); Glomerular Filtration Rate 19 (60-); Glucose, Blood 156 mg/dL (70-99); Phosphorus, Blood 3.8 mg/dL (2.5-4.9); Potassium, Blood 4.2 mmol/L (3.5-5.5); Sodium, Blood 139 mmol/L (136-145)
--- NOTE | 2023-07-18 05:53 | NUR ---
PT REFUSED 0400 VITAL SIGN CHECK. PT DID LET CARE STAFF CHANGE SOILED BRIEF, AND REPOSITION PT. WILL ATTEMPT TO CHECK VS LATER.
[2023-07-18 07:16] VITALS: BP 165/67
[2023-07-18 12:16] LABS: SARS-Cov-2 (COVID-19) PCR, MMC NEGATIVE (NEGATIVE)
[2023-07-18] MEDS ORDERED: ASPI81CH PO (12:19)
[2023-07-18] MEDS ORDERED: ATOR40TA PO (12:19)
[2023-07-18] MEDS ORDERED: CLOP75 PO (12:20)
[2023-07-18] MEDS ORDERED: BASAGLAR K100 UNIT/6 SC (12:21)
[2023-07-18] MEDS ORDERED: HUMALOG KW100 UNIT/1 SC (12:22)
[2023-07-18] MEDS ORDERED: METO25ER PO (12:23)
[2023-07-18 14:49] VITALS: BP 141/61
--- NOTE | 2023-07-18 17:38 | NUR ---
1430 ASSUMED CARE OF PT. PER REPORT, PT ADMITTED FOR STROKE WITH R SIDE WEAKNESS. HX OF HTN, DEMENTIA, DM W/HgA1C AT 10.2, CKD 4. BED BOUND AT BASELINE WITH STAND PIVOT TO BSC. PT INCONTINENT OF BLADDER. SR ON TELE. NO KNOWN FAMILY. MEDS TAKEN WHOLE IN PUDDING. PT TO D/C TO [facility] AT 1600. TRANSPORT ARRIVING AT 1615. ATTENDS CHANGED PRIOR TO LEAVING. REPORT CALLED TO RN @ [facility].
== END 2023-07-18 16:35 | DRG 69 ==
LOC: ER 23:04 → MEDS 07-15 03:22 → ENPENDDIS 07-18 10:18 → MEDS 07-18 16:35
PROVIDERS: Family Medicine Adult Medicine; Internal Medicine; Internal Medicine Nephrology; Student in an Organized Health Care Education/Training Program; ADMIT Internal Medicine
PROC: B24BZZZ Ultrasonography of Heart with Aorta (ICD-10-PCS; principal; 2023-07-16)
DX: G45.9 Transient cerebral ischemic attack, unspecified (principal); N17.9 Acute kidney failure, unspecified; N18.4 Chronic kidney disease, stage 4 (severe); E87.1 Hypo-osmolality and hyponatremia; I82.C12 Acute embolism and thrombosis of left internal jugular vein; N13.30 Unspecified hydronephrosis; E87.20 Acidosis, unspecified; Z66 Do not resuscitate; E87.5 Hyperkalemia; E11.22 Type 2 diabetes mellitus with diabetic chronic kidney disease; I12.9 Hypertensive chronic kidney disease with stage 1 through stage 4 chronic kidney disease, or unspecified chronic kidney disease; E03.9 Hypothyroidism, unspecified; F32.A Depression, unspecified; F41.9 Anxiety disorder, unspecified; F03.90 Unspecified dementia, unspecified severity, without behavioral disturbance, psychotic disturbance, mood disturbance, and anxiety; M19.90 Unspecified osteoarthritis, unspecified site; E86.9 Volume depletion, unspecified; E11.65 Type 2 diabetes mellitus with hyperglycemia; D63.1 Anemia in chronic kidney disease; Z88.0 Allergy status to penicillin; Z79.84 Long term (current) use of oral hypoglycemic drugs; Z79.890 Hormone replacement therapy
CPT/HCPCS: 36415; 70450; 70496; 70498; 74150; 76770; 80048; 80053; 80061; 80069; 82947; 83036; 83735; 84132; 84443; 85014; 85018; 85025; 92526; 92610; 93005; 93010; 93306; 96374; 97110; 97162; 97166; 97530; 97535; 99285-25; A9270; J0612; J1644; J1815; J2405; J7030; J7799; Q9967; U0002